=== PATIENT | female | born 1985 | race Caucasian/White ===

== ENCOUNTER 2017-04-07 18:32 | Emergency (ER) | payer BC ==
[~2017-04-07] VITALS: Ht 170.2 cm; Wt 69.5 kg
--- NOTE | 2017-04-07 21:05 | PHYS DOC ---
General Chief Complaint: RECTAL BLEED Stated Complaint: LIGHT HEADED,RECTAL BLEEDING Time Seen by MD: 21:01 Source: patient Exam Limitations: no limitations Problems: History of Present Illness Initial Comments 31-year-old female complains of rectal pain and bleeding 2 days. Patient states she has had hemorrhoids in the past and feels she may have recurrence. She's had some bright red blood with some painful bowel movements, no chest pain trouble breathing headache lightheadedness or vision changes. No bleeding disorders, denies other complaints. Timing/Duration: other Severity: mild Modifying Factors: worse with movement, improves with rest Associated Symptoms: other Allergies: Coded Allergies: No Known Drug Allergies (Unverified , 04/07/17) Past Medical History Medical History: no pertinent history Surgical History: noncontributory Social History Smoker: non-smoker Alcohol: none Drugs: none Review of Systems Constitutional: denies chills, denies fever Respiratory: denies cough, denies shortness of breath Cardiovascular: denies chest pain, denies palpitations Gastrointestinal: see HPI, denies abdominal pain, denies nausea, denies vomiting Genitourinary: denies dysuria, denies frequency, denies hematuria Musculoskeletal: denies back pain, denies joint swelling, denies neck pain Physical Exam General Appearance: WD/WN, no apparent distress Rectal: other (0.5 cm reducible external hemorrhoid at 3:00 visual exam always in no digital exam. Nurse present) Neurologic/Psychiatric: senior applications developer II-XII nml as tested, alert Orders, Labs, Meds I discussed treatment options, discussed hemorrhoidectomy versus conservative treatment patient would like to try conservative treatment first. Departure Time of Disposition: 21:03 Disposition: 01 HOME, SELF-CARE Diagnosis: grade 1 external hemorrhoid Condition: GOOD Patient Instructions: Hemorrhoids, [id number] Additional Instructions: Please review the patient education materials given by ED staff. No heavy lifting or straining/pending excess of time on the stool. Sits baths 4 times a day and after bowel movements. Increase daily fiber to 30 g daily, drink 8 glasses of water daily. Prescription: Hydrocortisone rectal 2.5%, Nupercainal Follow-up with your doctor in 5-7 days for recheck. Return to ED with new or changing symptoms. GRAYSON FRANCOIS DO Apr 07, 2017 21:05
[2017-04-07 21:10] VITALS: BP 123/85
== END 2017-04-07 21:11 | disposition home or self-care (01) ==
LOC: ER 18:32
DX: K64.4 Residual hemorrhoidal skin tags (principal)
CPT/HCPCS: 99283